=== PATIENT | female | born 2000 | race Two or more races ===

== ENCOUNTER 2023-09-22 14:33 | Emergency (ER) | payer BC, MEDICAID ==
[2023-09-22 16:16] LABS: CORONAVIRUS COVID-19 NAA NEGATIVE (NEGATIVE); INFLUENZA A NAA NEGATIVE (NEGATIVE); INFLUENZA B NAA NEGATIVE (NEGATIVE)
[2023-09-22] MEDS ORDERED: Albuterol/Ipratropium 3.0-0.5 MG/3 ML Neb Soln NEB ONE (16:54)
== END 2023-09-22 17:55 | disposition home or self-care (01) ==
LOC: MW.ED 14:33
DX: J40 Bronchitis, not specified as acute or chronic (principal)
CPT/HCPCS: 0240U; 71045; 99285; 99283; J7620-GY